=== PATIENT | female | born 1985 | race Caucasian/White ===

== ENCOUNTER 2017-07-07 16:50 | Inpatient (IN) | payer OTHER ==
[2017-07-07 17:41] LABS: ABS Basophils 0.1 10^3/ul (0-0.2); ABS Eosinophils 0 10^3/ul (0-0.6); ABS Lymphocytes 0.8 10^3/ul (1.0-4.8); ABS Monocytes 0.8 10^3/ul (0-0.8); ABS Neutrophils 18.8 10^3/ul (1.5-7.7); ABS Nucleated RBC 0 10^3/ul; Eosinophil % 0.1 % (0-6); Hematocrit 35 % (35-47); Hemoglobin 12.3 g/dl (12.0-16.0); Mean Corpuscular HGB Conc 36 g/dl (31-36); Mean Corpuscular Hemoglobin 31 pg (27-31); Mean Corpuscular Volume 88 fL (80-97); Mean Platelet Volume 8 um3 (7.4-10.4); Nucleated Red Blood Cells % 0.1; Platelet Count 354 10^3/ul (150-450); Red Blood Count 3.96 10^6/ul (4.0-5.4); Red Cell Distribution Width 13 % (10.5-15); White Blood Count 20.6 10^3/ul (3.5-10.8)
[2017-07-07 18:02] LABS: EGFR Non-African American 138.9 (>60)
[2017-07-07] MEDS ORDERED: OBEPIDURAL* 250 ML EPIDURAL ONE (18:12)
[2017-07-07] MEDS ORDERED: Phenylephrine IV* 40 MCG/ML 10 ML SYRINGE IV PUSH PRN ×2 (18:47)
[2017-07-07] MEDS ORDERED: Sodium Citrate/Citric Acid* 15 ML UDC PO PRN (18:47)
[2017-07-07] MEDS ORDERED: OBEPIDURAL* 250 ML EPIDURAL SCH (19:00)
[2017-07-07] MEDS ORDERED: NS 0.9% 1000 ML* 1,000 ML IV SCH (19:00)
[2017-07-07 19:23] LABS: EGFR Non-African American 142.1 (>60)
[2017-07-07] MEDS ORDERED: ceFOXitin 2 GM IVPREMIX* 2 GM/50 ML BAG IVPB ONE (20:46)
[2017-07-07] MEDS ORDERED: ceFOXitin(*) 2 GM in NS 0.9% 100 ML* 100 ML IVPB ONE (21:00)
[2017-07-07] MEDS ORDERED: Chloroprocaine 2%* 20 ML VIAL ONE (21:15)
[2017-07-07] MEDS ORDERED: Lidocaine 2% PF* 10 ML AMP ONE ×2 (21:15→21:51)
[2017-07-07] MEDS ORDERED: OXYTOCIN* 10 UNITS/ML 1 ML VIAL ONE ×2 (21:51→22:26)
[2017-07-07] MEDS ORDERED: Ondansetron INJ* 2 MG/ML VIAL ONE (21:51)
[2017-07-07] MEDS ORDERED: Ketorolac INJ* 30 MG/ML 1 ML VIAL ONE (21:51)
[2017-07-07] MEDS ORDERED: Morphine PF AMP (0.5MG/ML)* 5 MG/10 ML AMP ONE (21:54)
[2017-07-07] MEDS ORDERED: fentaNYL* 50 MCG/ML 2 ML VIAL (100 MCG VIAL) ONE (22:17)
[2017-07-07] MEDS ORDERED: Witch Hazel PAD* JAR TOPICAL PRN (22:50)
[2017-07-07] MEDS ORDERED: Tetan/Diph/Pertus SYR(Tdap)* 0.5 ML SYR(BOOSTRIX) use SYR IM ONE (22:50)
[2017-07-07] MEDS ORDERED: Acetaminophen IV 1GM/100ML * 100 ML ONE (22:53)
[2017-07-07] MEDS ORDERED: DiMENhydriNATE IV* 50 MG/ML VIAL IV PUSH PRN (22:55)
[2017-07-07] MEDS ORDERED: oxyCODONE/Acetamin 5/325 MG* TAB PO PRN ×2 (22:55→22:56)
[2017-07-07] MEDS ORDERED: Acetaminophen IV 1GM/100ML * 1,000 MG/100 ML VIAL IVPB ONE (22:55)
[2017-07-07] MEDS ORDERED: Naloxone* 0.4 MG/ML 1 ML VIAL IV PRN ×2 (22:55→22:56)
[2017-07-07] MEDS ORDERED: fentaNYL* 50 MCG/ML 2 ML VIAL (100 MCG VIAL) IV PRN (22:55)
[2017-07-07] MEDS ORDERED: Nalbuphine* 20 MG/ML 1 ML VIAL IV PRN (22:56)
[2017-07-07] MEDS ORDERED: Ondansetron INJ* 2 MG/ML VIAL IV PRN (22:56)
[2017-07-08] MEDS: Ibuprofen TAB* 600 MG PO SCH ×4 (02:06→17:00)
[2017-07-08 06:47] LABS: ABS Basophils 0 10^3/ul (0-0.2); ABS Eosinophils 0 10^3/ul (0-0.6); ABS Lymphocytes 0.8 10^3/ul (1.0-4.8); ABS Monocytes 0.5 10^3/ul (0-0.8); ABS Neutrophils 12.5 10^3/ul (1.5-7.7); ABS Nucleated RBC 0 10^3/ul; Eosinophil % 0.1 % (0-6); Hematocrit 26 % (35-47); Hemoglobin 9.5 g/dl (12.0-16.0); Lymphocyte % 6.1 % (25-47); Mean Corpuscular HGB Conc 36 g/dl (31-36); Mean Corpuscular Hemoglobin 32 pg (27-31); Mean Corpuscular Volume 88 fL (80-97); Mean Platelet Volume 8 um3 (7.4-10.4); Nucleated Red Blood Cells % 0; Platelet Count 266 10^3/ul (150-450); Red Blood Count 2.98 10^6/ul (4.0-5.4); Red Cell Distribution Width 13 % (10.5-15); White Blood Count 13.9 10^3/ul (3.5-10.8)
[2017-07-08 07:03] LABS: EGFR Non-African American 142.1 (>60)
[2017-07-08] MEDS: Simethicone TAB* 80 MG TAB.CHEW PO SCH ×4 (09:05→22:51)
[2017-07-08] MEDS: Docusate CAP* 100 MG PO SCH ×3 (09:05→22:50)
[2017-07-08] MEDS: Ferrous Gluconate TAB* 324 MG TAB PO SCH ×2 (09:06→22:50)
--- NOTE | 2017-07-08 13:22 | OP ---
DATE OF OPERATION: 07/07/17 - ROOM #117 DATE OF : 83 SURGEON: Chidi Palencia MD. CLOTHES IRONER: Andrew Ponce CNM. ANESTHESIOLOGIST: Dr. Gastelum. ANESTHESIA: Epidural. PRE-OP DIAGNOSIS: 42 plus 3 weeks' gestation with arrest of dilation and hyponatremia. POST-OP DIAGNOSES: 42 plus 3 weeks' gestation with arrest of dilation, hyponatremia and macrosomia. OPERATIVE PROCEDURE: Primary low-transverse section. ESTIMATED BLOOD LOSS: 1100 cc. IV FLUIDS: 500 cc lactated Ringer's and 1500 cc normal saline. URINE OUTPUT: 600 cc. MATERIALS TO LAB: Cord blood and cord gases. INDICATIONS: This patient was a 32-year-old 1, para 0, who was followed with a home drill punch operator and had an uncomplicated other than extending significantly post-term. The patient was able to induce labor by taking castor oil the day before admission. The patient then had frequent contractions over night and during the day today. The patient reportedly reached over 9-cm dilation several hours before presenting to the hospital. At that time, the patient had not had continued cervical dilation and so she was brought to the hospital for further evaluation and management. On evaluation initially, the patient's cervix was mostly dilated with just a rim of cervix on the left side. Station was about 0. The heart tracing had fairly minimal variability for much of the time we were observing, but this did improve somewhat with IV fluid hydration. A was advised considering the patient had been nearly fully dilated for many hours and the heart tracing was largely category II; however, after discussion, the patient declined and desired to get an epidural to see if the rest and relaxing of the pelvis was able to result in further dilation. After about 60 to 90 minutes with an epidural, the patient was comfortable, but there was still continued cervix surrounding the head. At that time, the patient agreed to proceed with a section. She was extensively counseled and consent was signed. FINDINGS: Normal-appearing uterus, fallopian tubes, and ovaries. There was very thick meconium present on entry into the uterus, which had not been seen during labor. Delivery was productive of a 9 pound 14 ounce male infant with Apgars of 3 and 8. The infant received care by the riveter portable machine immediately after delivery as there was some meconium aspiration. COMPLICATIONS: A fairly significant lower uterine segment extension of the incision required multiple additional sutures and also resulted in additional blood loss. A future trial of labor was discussed and discouraged. DESCRIPTION OF PROCEDURE: The risks, benefits, and alternatives were described to the patient and informed consent was obtained. The patient was taken to the operating room with IV running where epidural anesthesia was induced and found to be adequate. The patient was prepped and draped in the normal sterile fashion in the dorsal supine position with a leftward tilt. A Pfannenstiel skin incision was made with a scalpel and this was carried down to the underlying fascia sharply. The fascia was then scored in the midline with the scalpel. The incision was extended using English scissors. The rectus muscles were dissected off the rectus fascia using blunt and sharp dissection. The rectus muscles were in the midline bluntly. The peritoneum was also entered bluntly. A bladder blade was placed. A bladder flap was created sharply using Metzenbaum scissors. A low transverse uterine incision was made with the scalpel. This was carried down to the amniotic cavity which was productive of extremely thick meconium. The incision was extended with blunt traction. The head was elevated to the level of the incision with only mild difficulty and delivered through the incision. With fundal pressure, the shoulders and body delivered. The infant had good tone and cried immediately on delivery. The cord was doubly clamped and cut. The was then handed to the awaiting patient accounts coordinator. Cord blood and gases were collected. The placenta then delivered with manual extraction. The uterus was then exteriorized and cleared of all clots and debris. A long extension of the uterine incision was noted from the right apex and continuing toward the cervix. Several 0-Vicryl stitches were placed to reapproximate the laceration and to obtain hemostasis. Brisk bleeding was also noted from a right uterine vessel, so a hemostatic stitch was placed and effective. The remainder of the uterine incision was the reapproximated using 0 Polysorb in a running-locked fashion. A second layer of imbricating sutures of 0 Polysorb was also placed with good hemostasis. The posterior cul-de-sac was irrigated with saline. The uterus was then returned to the abdomen, and the incision was reinspected and noted to be hemostatic. The peritoneum was closed with 3-0 Polysorb in a running fashion. The fascia was closed with 0 Polysorb in a running fashion. Subcutaneous tissues were irrigated and made hemostatic with the Bovie. The skin was then closed with 4-0 Monocryl in a subcuticular stitch. Mastisol and Steri-Strips were placed over the incision which was then covered with a sterile bandage. The patient tolerated the procedure well. Sponge, lap, and needle counts were correct x2. [id number]/[facility] #: [id number] MTDD
[2017-07-08] MEDS ORDERED: oxyCODONE/Acetamin 5/325 MG* TAB PO PRN (13:54)
[2017-07-08] MEDS: oxyCODONE/Acetamin 5/325 MG* TAB PO PRN ×2 (17:05→22:51)
[2017-07-09] MEDS: Ibuprofen TAB* 600 MG PO SCH ×5 (00:27→18:25)
[2017-07-09] MEDS: oxyCODONE/Acetamin 5/325 MG* TAB PO PRN ×4 (05:22→19:55)
[2017-07-09] MEDS: Simethicone TAB* 80 MG TAB.CHEW PO SCH ×4 (08:03→19:55)
[2017-07-09] MEDS: Docusate CAP* 100 MG PO SCH ×3 (08:04→19:54)
[2017-07-09] MEDS: Ferrous Gluconate TAB* 324 MG TAB PO SCH ×2 (08:04→19:55)
[2017-07-10] MEDS: Ibuprofen TAB* 600 MG PO SCH ×2 (00:28→07:48)
[2017-07-10] MEDS ORDERED: Acetaminophen TAB* 325 MG ONE (05:07)
[2017-07-10] MEDS: Simethicone TAB* 80 MG TAB.CHEW PO SCH ×2 (07:48→11:58)
[2017-07-10] MEDS: Docusate CAP* 100 MG PO SCH (07:48)
[2017-07-10] MEDS: Ferrous Gluconate TAB* 324 MG TAB PO SCH (07:48)
[2017-07-10 07:58] VITALS: BP 122/68
[2017-07-10] MEDS: oxyCODONE/Acetamin 5/325 MG* TAB PO PRN (11:58)
== END 2017-07-10 14:49 | disposition home or self-care (01) | DRG 765 ==
LOC: MCHOBOUT 16:50 → MCHOB 17:22
PROVIDERS: ADMIT Obstetrics & Gynecology; ATTEND Obstetrics & Gynecology
PROC: 4A1HX4Z Monitoring of Products of Conception, Cardiac Electrical Activity, External Approach (ICD-10-PCS; 2017-07-07)
PROC: 10D00Z1 Extraction of Products of Conception, Low, Open Approach (ICD-10-PCS; principal; 2017-07-07 21:12)
DX: O62.1 Secondary uterine inertia (principal); E87.1 Hypo-osmolality and hyponatremia; O48.1 Prolonged pregnancy; O76 Abnormality in fetal heart rate and rhythm complicating labor and delivery; O75.89 Other specified complications of labor and delivery; O36.63X0 Maternal care for excessive fetal growth, third trimester, not applicable or unspecified; Z37.0 Single live birth; Z3A.42 42 weeks gestation of pregnancy; O90.81 Anemia of the puerperium; O77.0 Labor and delivery complicated by meconium in amniotic fluid
CPT/HCPCS: 36415; 80048; 80053; 85025; 86850; 86900; 86901; A9270-GY; J0694; J1885; J2001; J2400; J2405; J2590; J3010